=== PATIENT | female | born 1965 | race Native Hawaiian/Other Pacific Islander ===

== ENCOUNTER 2021-07-16 09:30 | Emergency (ER) | payer OTHER ==
[~2021-07-16] VITALS: Ht 162.6 cm; Wt 127.0 kg
[2021-07-16 10:13] LABS: PLATELET COUNT 134 K/uL (152-353)
[2021-07-16 10:18] LABS: POTASSIUM 3.5 mmol/L (3.6-5.2)
[2021-07-16 13:43] VITALS: BP 125/74; TEMP 96.9
== END 2021-07-16 13:50 | disposition home or self-care (01) ==
LOC: ED 09:30
PROVIDERS: Family Medicine
DX: M16.11 Unilateral primary osteoarthritis, right hip (principal); E87.6 Hypokalemia; W18.39XA Other fall on same level, initial encounter; Y93.01 Activity, walking, marching and hiking; Y92.098 Other place in other non-institutional residence as the place of occurrence of the external cause
CPT/HCPCS: 80053; 82550; 85027; 93005; 96372; 99283; J1885; J2930

== ENCOUNTER 2021-09-26 17:13 | Outpatient (CLI) | payer OTHER | END 2021-09-26 19:53 | disposition home or self-care (01) | LOC: RAD 17:13 | PROVIDERS: ATTEND Nurse Practitioner Family | DX: M15.0 Primary generalized (osteo)arthritis (principal); Z91.81 History of falling ==

== ENCOUNTER 2021-11-13 11:27 | Emergency (ER) | payer OTHER ==
[~2021-11-13] VITALS: Ht 162.6 cm; Wt 111.1 kg
[2021-11-13 11:34] VITALS: BP 103/70; TEMP 98.2
[2021-11-13] MEDS ORDERED: NEURONTIN 100M100 MG PO (11:55)
[2021-11-13] MEDS ORDERED: AMLO2.5T PO (11:56)
[2021-11-13] MEDS ORDERED: PRAVASTATIN10 MG PO (11:57)
[2021-11-13] MEDS ORDERED: LIBRAX1 CAP PO (11:57)
[2021-11-13] MEDS ORDERED: MOBIC15 MG PO ×2 (11:58→12:00)
[2021-11-13] MEDS ORDERED: TRAZ100T PO (11:58)
[2021-11-13] MEDS ORDERED: BUPROPION HYDR300 MG PO (11:59)
[2021-11-13] MEDS ORDERED: ATEN50TA36 PO (11:59)
[2021-11-13] MEDS ORDERED: LISI10TA11 PO (12:00)
== END 2021-11-13 13:12 | disposition home or self-care (01) ==
LOC: ED 11:27
DX: M54.2 Cervicalgia (principal); M54.59 Other low back pain; G89.29 Other chronic pain
CPT/HCPCS: 96372; 99282; J1885

== ENCOUNTER 2021-11-13 13:16 | Outpatient (CLI) | payer OTHER ==
[~2021-11-13 13:16] MED LIST: AMLO2.5T PO; ATEN50TA36 PO; BUPROPION HYDR300 MG PO; LIBRAX1 CAP PO; LISI10TA11 PO; MOBIC15 MG PO; NEURONTIN 100M100 MG PO; PRAVASTATIN10 MG PO; TRAZ100T PO
== END 2021-11-13 18:56 | disposition home or self-care (01) ==
LOC: RAD 13:16
PROVIDERS: ATTEND Nurse Practitioner Family
DX: K58.0 Irritable bowel syndrome with diarrhea (principal); M15.0 Primary generalized (osteo)arthritis

== ENCOUNTER 2021-12-20 09:37 | Outpatient (CLI) | payer OTHER | END 2021-12-20 20:20 | disposition home or self-care (01) | LOC: LABW 09:37 | PROVIDERS: ATTEND Nurse Practitioner Family | DX: M15.0 Primary generalized (osteo)arthritis (principal); K59.1 Functional diarrhea | CPT/HCPCS: 82272; 82705; 83630; 87015; 87045; 87324; 87328; 87329; 87449; 87899 ==

== ENCOUNTER 2022-02-08 09:56 | Outpatient (CLI) | payer OTHER | END 2022-02-08 19:11 | disposition home or self-care (01) | LOC: CT 09:56 | PROVIDERS: ATTEND Nurse Practitioner Family | DX: M54.81 Occipital neuralgia (principal); G44.52 New daily persistent headache (NDPH) ==